=== PATIENT | female | born 2000 | race Hispanic/Latino ===

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

== ENCOUNTER 2019-02-14 15:58 | Emergency (ER) | payer MEDICAID, SELFPAY ==
[2019-02-14] MEDS ORDERED: Bicillin CR 1.2 MILL UNITS/2 ML SYRINGE ONE (16:20)
[2019-02-14] MEDS ORDERED: Dexamethasone 4 MG TAB ONE (16:20)
== END 2019-02-14 16:35 | disposition home or self-care (01) ==
LOC: BURERS 15:58
DX: J03.90 Acute tonsillitis, unspecified (principal)
CPT/HCPCS: 96372; J0558; J8540

== ENCOUNTER 2021-08-31 10:15 | Emergency (ER) | payer SELFPAY ==
[2021-08-31] MEDS ORDERED: Dexamethasone 4 MG TAB ONE (10:34)
== END 2021-08-31 10:36 | disposition home or self-care (01) ==
LOC: BURERS 10:15
DX: J02.9 Acute pharyngitis, unspecified (principal)
CPT/HCPCS: 99283; J8540

== ENCOUNTER 2022-06-16 13:22 | Emergency (ER) | payer SELFPAY | END 2022-06-16 14:38 | disposition home or self-care (01) | LOC: BURERS 13:22 | DX: J06.9 Acute upper respiratory infection, unspecified (principal) | CPT/HCPCS: 99283 ==

== ENCOUNTER 2022-08-27 16:35 | Emergency (ER) | payer OTHER, SELFPAY ==
[2022-08-27] MEDS ORDERED: HYDROcodone/Acetaminophen 5/325 mg Tablet ONE (17:02)
== END 2022-08-27 18:02 | disposition home or self-care (01) ==
LOC: BURERS 16:35
DX: S20.212A Contusion of left front wall of thorax, initial encounter (principal); S40.012A Contusion of left shoulder, initial encounter; S90.01XA Contusion of right ankle, initial encounter; V89.2XXA Person injured in unspecified motor-vehicle accident, traffic, initial encounter
CPT/HCPCS: 71045